=== PATIENT | male | born 1955 | race Caucasian/White ===

== ENCOUNTER → 2018-02-10 | Outpatient (CLI) | payer OTHER ==
[2018-02-10 12:54] LABS: BASOPHILS % (AUTO) 0.7 %; EOSINOPHILS # (AUTO) 0.1 10^3/uL (0.0-0.7); EOSINOPHILS % (AUTO) 3.1 %; HGB - HEMOGLOBIN 14.7 g/dL (14.0-18.0); LYMPHOCYTES # (AUTO) 1.3 10^3/uL (1.5-3.5); LYMPHOCYTES % (AUTO) 29.2 %; MEAN CORPUSCULAR HGB CONC 34.2 g/dL (32.0-36.0); MEAN CORPUSCULAR VOLUME 90.9 fL (80.0-94.0); MEAN PLATELET VOLUME 7.7 fL (7.4-11.4); MONOCYTES # (AUTO) 0.5 10^3/uL (0.0-1.0); NEUTROPHILS # (AUTO) 2.6 10^3/uL (1.5-6.6); PLT - PLATELET COUNT 333 10^3/uL (130-450); RED BLOOD COUNT 4.75 10^6/uL (4.70-6.10); RED CELL DISTRIBUTION WIDTH 13.4 % (12.0-15.0); WHITE BLOOD COUNT 4.6 x10^3/uL (4.8-10.8)
[2018-02-10 13:12] LABS: ALBUMIN 4.2 g/dL (3.2-5.5); ALBUMIN/GLOBULIN RATIO 1.4 (1.0-2.2); ALKALINE PHOSPHATASE 71 IU/L (42-121); ALT ALANINE AMINOTRANSFERASE 22 IU/L (10-60); AST ASPARTATE AMINOTRANSFERASE 22 IU/L (10-42); BILIRUBIN,TOTAL 0.8 mg/dL (0.2-1.0); BUN - BLOOD UREA NITROGEN 10 mg/dL (6-20); CARBON DIOXIDE - CO2 28 mmol/L (21-32); CHLORIDE 100 mmol/L (101-111); CHOL/HDL RATIO 3.8 (<5.0); CHOLESTEROL 199 mg/dL; CREATININE 0.9 mg/dL (0.6-1.2); GFR - MDRD 85 (>89); GLUCOSE 108 mg/dL (70-100); HDL CHOLESTEROL 53 mg/dL; LDL CHOLESTEROL,CALCULATED 123 mg/dL; LDL/HDL RATIO 2.3 (<3.6); SODIUM 137 mmol/L (135-145); TOTAL PROTEIN 7.1 g/dL (6.7-8.2); VLDL CHOLESTEROL 23 mg/dL
[2018-02-10 13:16] LABS: PSA FREE 0.39 ng/mL (0.16-2.81); PSA TOTAL 3.22 ng/mL (0.000-2.000)
[2018-02-10 14:02] LABS: HB2 TOTAL 15.5 g/dL; HEMOGLOBIN A1C 0.69 g/dL; HEMOGLOBIN A1C % 6.2 % (4.6-6.2)
== END ==
LOC: LAB.WCP 07:29
PROVIDERS: ATTEND Family Medicine
DX: Z00.00 Encounter for general adult medical examination without abnormal findings (principal); E78.5 Hyperlipidemia, unspecified; E74.39 Other disorders of intestinal carbohydrate absorption; Z12.5 Encounter for screening for malignant neoplasm of prostate
CPT/HCPCS: 36415; 80053; 80061; 83036; 83721; 84154; 85025

== ENCOUNTER 2018-07-07 08:00 | Outpatient (CLI) | payer OTHER ==
[2018-07-07 13:10] LABS: PSA FREE 0.25 ng/mL (0.16-2.81)
[2018-07-07 13:11] LABS: HB2 TOTAL 15.9 g/dL; HEMOGLOBIN A1C 0.71 g/dL; HEMOGLOBIN A1C % 6.2 % (4.6-6.2); PSA TOTAL 1.9 ng/mL (0.000-2.000)
== END 2018-07-07 23:59 | disposition home or self-care (01) ==
LOC: LAB.WCP 08:00
PROVIDERS: ATTEND Family Medicine
DX: R73.03 Prediabetes (principal); N40.0 Benign prostatic hyperplasia without lower urinary tract symptoms
CPT/HCPCS: 36415; 83036; 84153; 84154

== ENCOUNTER 2018-11-01 08:24 | Outpatient (CLI) | payer MEDICARE, OTHER | END 2018-11-01 23:59 | disposition home or self-care (01) | LOC: RT.N 08:24 | PROVIDERS: ATTEND Family Medicine | DX: R06.09 Other forms of dyspnea (principal) | CPT/HCPCS: 93005 ==

== ENCOUNTER 2018-11-01 09:23 | Outpatient (CLI) | payer MEDICARE, OTHER ==
[2018-11-01 10:07] LABS: TROPONIN I 0.18 ng/mL (<0.49)
[2018-11-01 10:09] LABS: CREATINE KINASE MB 3.5 ng/mL (0.6-6.3)
--- NOTE | 2018-11-01 15:14 | XRAY Report ---
Reason: DYSPNEA ON EXERTION Procedure Date: 11/01/2018 Accession Number: [id number] / [id number] Procedure: XR - Chest 2 View X-Ray CPT Code: 23534 FULL RESULT: EXAM: CHEST RADIOGRAPHY. EXAM DATE: 11/01/2018 09:41 AM. CLINICAL HISTORY: Shortness of air and inability to catch breath with simple exertion for 1 week. COMPARISON: None. TECHNIQUE: 2 views. FINDINGS: Lungs/Pleura: No focal opacities evident. No pleural effusion. No pneumothorax. Normal volumes. Mediastinum: Heart and mediastinal contours demonstrate borderline cardiomegaly. Other: None. IMPRESSION: Top normal size of the cardiac silhouette. [facility]
== END 2018-11-01 09:24 | disposition home or self-care (01) ==
LOC: DI 09:23
PROVIDERS: ATTEND Family Medicine
DX: R06.00 Dyspnea, unspecified (principal)
CPT/HCPCS: 36415; 71046; 82553; 83880; 84484; 85379

== ENCOUNTER 2018-11-23 08:49 | Outpatient (CLI) | payer MEDICARE, OTHER ==
--- NOTE | 2018-11-23 14:22 | Nuclear Medicine Report ---
Reason: DYSPNEA ON EXERTION Procedure Date: 11/23/2018 Accession Number: [id number] / [id number] Procedure: NM - Myocardial Perfusion STR/RST CPT Code: FULL RESULT: EXAM: SINGLE-ISOTOPE PHARMACOLOGICAL STRESS TEST WITH REGADENOSON. SINGLE-ISOTOPE AND TWO-DAY REST/STRESS MYOCARDIAL PERFUSION SCANS WITH TOMOGRAPHIC IMAGING, QUANTITATIVE ANALYSIS, WALL MOTION ANALYSIS AND CALCULATION OF EJECTION FRACTION. EXAM DATE: 11/23/2018 12:44 PM. CLINICAL HISTORY: DYSPNEA ON EXERTION. COMPARISON: None available. TECHNIQUE: A pharmacological stress was performed with the infusion of 0.4 mg regadenoson per protocol. According to protocol, 10.6 mCi of Tc-99m sestamibi was injected for stress myocardial perfusion scan. Motion correction was applied when appropriate. The following day after the intravenous administration of 43.8 mCi of Tc-99m sestamibi, a rest myocardial perfusion scan was done with tomography. Motion correction was applied when appropriate. Gated tomographic images were obtained for wall motion analysis and computation of left ventricular ejection fraction. FINDINGS: There is a large reversible perfusion defect involving the apex and mid to distal anteroseptal, anterior, and anterolateral saleem. Computer analysis. Summed stress score 25 Summed score 6 Summed difference score 18 Wall motion analysis demonstrates normal wall motion. The left ventricular end-diastolic volume is 66 cc. The left ventricular end-systolic volume is 15 cc. The left ventricular ejection fraction is calculated to be 78%. IMPRESSION: 1. On visual analysis, there is a large reversible perfusion defect involving the apex and mid to distal anteroseptal, anterior, and anterolateral saleem. 2. Left ventricular ejection fraction of 78%. 3. Normal segmental and global wall motion. 4. Normal left ventricular cavity size, no change with stress 5. Based on computer analysis, severely abnormal study with severe ischemia. Please correlate findings with stress ECG tracings and procedure notes. [facility] The call report notification system was initiated by Dr. Francesco Argueta at 02:20 PM on 11/23/2018. ADDENDUM: 11/23/18 14:56 The above call report findings were discussed with Dr Lozano by Dr. Francesco Argueta at 02:56 PM on 11/23/2018. ADDENDUM: 11/23/18 16:16 Correction, this was a single day treadmill exercise rest and stress exam. The patient exercised for 5 minutes 27 seconds. Peak heart rate 141 bpm which was 90% of maximum predicted heart rate.
--- NOTE | 2018-11-23 15:31 | CARDIAC PROCEDURE NOTE ---
DATE OF SERVICE: 11/23/2018 Physician: Bettie Bruno MD, [facility] INDICATIONS: Dyspnea on exertion. CARDIAC RISK FACTORS: Male gender, advanced age, remote ex-smoker who quit 33 years ago. PROCEDURE: After signing informed consent, patient underwent a Adarsh-protocol treadmill stress test with nuclear myocardial perfusion imaging. Resting heart rate: 73. Peak heart rate: 141 (90% predicted maximum heart rate for age). Resting blood pressure: 141/80. Peak blood pressure: 170/70. Patient exercised for 5 minutes and 27 seconds on a Adarsh-protocol treadmill stress test. Patient developed mild to moderate shortness of breath at the end of stage 1 and also described his abnormal "chest tightness." He declined calling this chest pressure or chest pain. He described this discomfort at 6/10. In recovery, it lasted 3 minutes, and stopped spontaneously. Oxygen saturation at peak was 99% on room air. He achieved 90% pred max HR and 6 METS. Resting EKG: Normal sinus rhythm, and within normal limits. EKG at peak: ST depressions of 1 mm, downsloping in leads 1, 2, aVL, but [address] depressions in V2 through V6. The recovery EKGs showed new T-wave inversions in leads V3 through V6, which persisted up to 6 minutes of recovery. IMPRESSION 1. Typical anginal symptoms developed with treadmill exercise. 2. Significant ST-segment depressions and T-wave inversions paralleled his dyspnea and chest pain, and are consistent with significant ischemia. 3. The patient was advised not to exercise daily (he reported what sounds like "walk through angina") until cleared to do so, also advised to start taking one baby aspirin a day. 4. Nuclear images reported separately. 5. Dr. Lozano was called with these results. cc: Raul Lozano MD TD: 11/23/2018 14:19 [facility]
== END 2018-11-23 08:50 | disposition home or self-care (01) ==
LOC: DI 08:49
PROVIDERS: ATTEND Family Medicine
DX: I25.9 Chronic ischemic heart disease, unspecified (principal); Z87.891 Personal history of nicotine dependence
CPT/HCPCS: 78452; 93016; 93017; 93018; A9500

== ENCOUNTER 2018-12-11 08:00 | Outpatient (CLI) | payer MEDICARE, OTHER ==
[2018-12-11 12:44] LABS: HGB - HEMOGLOBIN 14.6 g/dL (14.0-18.0); MEAN CORPUSCULAR HEMOGLOBIN 29.8 pg (27.0-31.0); MEAN CORPUSCULAR HGB CONC 32.3 g/dL (32.0-36.0); MEAN CORPUSCULAR VOLUME 92.2 fL (80.0-94.0); MEAN PLATELET VOLUME 9.6 fL (7.4-11.4); RED BLOOD COUNT 4.9 10^6/uL (4.70-6.10); RED CELL DISTRIBUTION WIDTH 12.7 % (12.0-15.0)
[2018-12-11 12:51] LABS: CALCIUM 9.2 mg/dL (8.5-10.3); CREATININE 1.1 mg/dL (0.6-1.2)
== END 2018-12-11 23:59 | disposition home or self-care (01) ==
LOC: LAB.WCP 08:00
PROVIDERS: ATTEND Internal Medicine Cardiovascular Disease
DX: I25.10 Atherosclerotic heart disease of native coronary artery without angina pectoris (principal); R94.39 Abnormal result of other cardiovascular function study; R07.89 Other chest pain
CPT/HCPCS: 36415; 80048; 85027

== ENCOUNTER 2019-09-03 07:10 | Outpatient (CLI) | payer MEDICARE, OTHER ==
[2019-09-03 14:33] LABS: CHOL/HDL RATIO 2.4 (<5.0); CHOLESTEROL 127 mg/dL; HDL CHOLESTEROL 54 mg/dL; LDL CHOLESTEROL,CALCULATED 57 mg/dL; LDL/HDL RATIO 1.1 (<3.6); VLDL CHOLESTEROL 16 mg/dL
== END 2019-09-03 23:59 | disposition home or self-care (01) ==
LOC: LAB.WCP 07:10
PROVIDERS: ATTEND Internal Medicine
DX: I25.10 Atherosclerotic heart disease of native coronary artery without angina pectoris (principal)
CPT/HCPCS: 36415; 80053; 80061; 81599; 83721

== ENCOUNTER 2020-03-27 08:00 | Outpatient (CLI) | payer MEDICARE, OTHER ==
--- NOTE | 2020-03-27 16:11 | XRAY Report ---
PROCEDURE: Chest 2 View X-Ray INDICATIONS: ATYPICAL CHEST PAIN TECHNIQUE: 2 view(s) of the chest. COMPARISON: Chest x-ray 11/01/2018 FINDINGS: Surgical changes and devices: Sternal wires are present. Lungs and pleura: No pleural effusions or pneumothorax. Lungs are clear. Mediastinum: Mediastinal contours are normal. Heart size is mildly enlarged. Bones and chest wall: No suspicious bony abnormalities. Soft tissues appear unremarkable. IMPRESSION: No acute pulmonary process. Reviewed by: Meliza Jimenez MD on 03/27/2020 4:10 PM PST Approved by: Meliza Jimenez MD on 03/27/2020 4:10 PM PST Station ID: [id number]
== END 2020-03-27 23:59 | disposition home or self-care (01) ==
LOC: DI.WCP 08:00
PROVIDERS: ATTEND Physician Assistant Medical
DX: R07.89 Other chest pain (principal)

== ENCOUNTER 2020-04-28 17:37 | Outpatient (CLI) | payer MEDICARE, OTHER | END 2020-04-28 17:38 | disposition home or self-care (01) | LOC: COV 17:37 | PROVIDERS: ATTEND Family Medicine | DX: R05 Cough (principal); R53.83 Other fatigue; R68.83 Chills (without fever); R09.81 Nasal congestion; J34.89 Other specified disorders of nose and nasal sinuses; Z20.822 Contact with and (suspected) exposure to COVID-19 ==

== ENCOUNTER 2020-05-19 09:35 | Outpatient (CLI) | payer MEDICARE, OTHER ==
[2020-05-19] MEDS ORDERED: IOVERSOL 320 100 ML VIAL IVP ONE ×2 (09:50→13:31)
--- NOTE | 2020-05-19 14:49 | CT Report ---
PROCEDURE: CHEST W INDICATIONS: ATYPICAL CHEST PAIN CONTRAST: IV CONTRAST: Optiray 320 ml: 100 PO CONTRAST: *NO PO CONTRAST TECHNIQUE: After the administration of intravenous contrast, 5 mm thick sections acquired from the pulmonary api leonel to the posterior costophrenic angles. 7 mm thick coronal MIP reformats were acquired. For radia tion dose reduction, the following was used: automated exposure control, adjustment of mA and/or kV according to patient size. COMPARISON: Chest x-ray 03/27/2020, 11/01/2018 FINDINGS: Image quality: Excellent. Lungs and pleura: No acute air space opacities. No pleural effusions or pneumothorax. Central and peripheral airways are patent and normal in caliber. Mediastinum: Heart size is normal. No pericardial effusion. There is a circumscribed thin-walled s ubcarinal air collection measuring 2.2 x 3.0 x 2.0 cm with uncertain origin. No debris or fluid layer . No mediastinal or hilar adenopathy by size criteria. Thoracic aorta and central pulmonary arteries are normal in size. Esophagus is normal in caliber. No hiatal hernia. Bones and chest wall: Healed median sternotomy changes are present. Sternal wires appear in place. P ost-CABG changes and heart are evident. No suspicious bony lesions. No vertebral body compression fr actures. No axillary or supraclavicular adenopathy by size criteria. Thyroid gland is within normal limits.. Abdomen: Visualized upper abdominal solid organs appear normal. Upper abdominal bowel loops are nor mal in caliber. IMPRESSION: 1. Expected surgical changes of prior median sternotomy. 2. Suspicious chest wall changes to explain pain. 3. 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 It can be seen in retrospect on prior chest x-rays. Reviewed by: Tiffanie Brothers MD on 05/19/2020 2:48 PM PST Approved by: Tiffanie Brothers MD on 05/19/2020 2:48 PM PST Station ID: [id number]
== END 2020-05-19 09:36 | disposition home or self-care (01) ==
LOC: DI 09:35
PROVIDERS: ATTEND Physician Assistant Medical
DX: R07.89 Other chest pain (principal); R93.7 Abnormal findings on diagnostic imaging of other parts of musculoskeletal system
CPT/HCPCS: 36415; 71260; 80048; Q9967

== ENCOUNTER 2020-05-19 09:38 | Outpatient (CLI) | payer MEDICARE, OTHER ==
[2020-05-19 10:18] LABS: CALCIUM 9.6 mg/dL (8.5-10.3)
== END 2020-05-19 09:39 | disposition home or self-care (01) ==
LOC: LAB 09:38
PROVIDERS: ATTEND Physician Assistant Medical
DX: R07.89 Other chest pain (principal)
CPT/HCPCS: 36415; 80048

== ENCOUNTER 2020-10-22 08:00 | Outpatient (CLI) | payer MEDICARE, OTHER ==
[2020-10-22 12:16] LABS: BASOPHILS % (AUTO) 0.8 %; EOSINOPHILS # (AUTO) 0.2 10^3/uL (0.0-0.7); EOSINOPHILS % (AUTO) 4.4 %; HCT - HEMATOCRIT 44.1 % (42.0-52.0); HGB - HEMOGLOBIN 14.6 g/dL (14.0-18.0); LYMPHOCYTES # (AUTO) 1.5 10^3/uL (1.5-3.5); LYMPHOCYTES % (AUTO) 27.9 %; MEAN CORPUSCULAR HEMOGLOBIN 31.1 pg (27.0-31.0); MEAN CORPUSCULAR HGB CONC 33.1 g/dL (32.0-36.0); MONOCYTES # (AUTO) 0.5 10^3/uL (0.0-1.0); MONOCYTES % (AUTO) 10.1 %; NEUTROPHILS % (AUTO) 56.6 %; PLT - PLATELET COUNT 336 10^3/uL (130-450); RED BLOOD COUNT 4.69 10^6/uL (4.70-6.10); RED CELL DISTRIBUTION WIDTH 12.5 % (12.0-15.0); WHITE BLOOD COUNT 5.3 x10^3/uL (4.8-10.8)
[2020-10-22 12:48] LABS: ALBUMIN 4.4 g/dL (3.2-5.5); ALBUMIN/GLOBULIN RATIO 1.5 (1.0-2.2); ALKALINE PHOSPHATASE 63 IU/L (42-121); ALT ALANINE AMINOTRANSFERASE 18 IU/L (10-60); AST ASPARTATE AMINOTRANSFERASE 21 IU/L (10-42); BILIRUBIN,TOTAL 0.8 mg/dL (0.2-1.0); BUN - BLOOD UREA NITROGEN 17 mg/dL (6-20); CALCIUM 9.4 mg/dL (8.5-10.3); CARBON DIOXIDE - CO2 31 mmol/L (21-32); CHLORIDE 101 mmol/L (101-111); CHOL/HDL RATIO 2.7 (<5.0); CHOLESTEROL 129 mg/dL; GFR - MDRD 75 (>89); GLUCOSE 109 mg/dL (70-100); HDL CHOLESTEROL 47 mg/dL; LDL CHOLESTEROL,CALCULATED 66 mg/dL; LDL/HDL RATIO 1.4 (<3.6); POTASSIUM 4.5 mmol/L (3.5-5.0); SODIUM 141 mmol/L (135-145); TOTAL PROTEIN 7.3 g/dL (6.7-8.2); TRIGLYCERIDES 81 mg/dL; VLDL CHOLESTEROL 16 mg/dL
== END 2020-10-22 23:59 | disposition home or self-care (01) ==
LOC: LAB.WCP 08:00
PROVIDERS: ATTEND Physician Assistant Medical
DX: E78.5 Hyperlipidemia, unspecified (principal); N40.0 Benign prostatic hyperplasia without lower urinary tract symptoms; R03.0 Elevated blood-pressure reading, without diagnosis of hypertension
CPT/HCPCS: 36415; 80053; 80061; 83721; 84153; 85025

== ENCOUNTER 2021-02-20 09:48 | Day surgery (SDC) | payer MEDICARE, OTHER ==
[2021-02-20] MEDS ORDERED: LACTATED RINGERS 1,000 ML IV ONE ×2 (10:12→13:30)
--- NOTE | 2021-02-20 10:31 | ANESTHESIA ---
Pre-Anesthesia VS, & Labs - Diagnosis Screening exam - Procedure Colonoscopy Vital Signs: Temp Pulse Resp BP Pulse Ox 36.4 C L 63 14 161/92 H 99 02/20/21 10:08 02/20/21 10:08 02/20/21 10:08 02/20/21 10:08 02/20/21 10:08 Height: 5 ft 8 in Weight (kg): 81 kg Body Mass Index: 27.1 BMI Classification: Overweight - NPO >8 hours Last Fluid Intake: 0700 Home Medications and Allergies Home Medications: Ambulatory Orders Aspirin [Vazalore] 81 mg PO DAILY 02/19/21 Atorvastatin [Lipitor] 40 mg PO DAILY 02/19/21 Metoprolol Succinate [[place]apsp[place] Sprinkle] 12.5 mg PO DAILY 02/19/21 Omeprazole 20 mg PO DAILY 02/19/21 Aspirin [Vazalore] 81 mg PO DAILY 02/19/21 Atorvastatin [Lipitor] 40 mg PO DAILY 02/19/21 Metoprolol Succinate [[place] Sprinkle] 12.5 mg PO DAILY 02/19/21 Omeprazole 20 mg PO DAILY 02/19/21 Allergies/Adverse Reactions: Allergies Allergy/AdvReac Type Severity Reaction Status Date / Time Penicillins Allergy Rash Verified 02/19/21 12:47 Anes History & Medical History - Anesthetic History Anesthesia Complications: reports: No previous complications - Medical History Cardiovascular: reports: High cholesterol, Coronary artery disease (s/p CABG) Pulmonary: reports: None Gastrointestinal: reports: GERD (controlled with medication) Urinary: reports: None Neuro: reports: None Musculoskeletal: reports: None Endocrine/Autoimmune: reports: None Blood Disorders: reports: None Skin: reports: None, Other Smoking Status: Never smoker Psychosocial: reports: Alcohol (2 glasses of wine per day) History of Cancer?: No - Surgical History Eyes Ears Nose Throat (EENT): reports: Tonsil/Adenoidectomy Cardiothoracic: reports: CABG (Dec 2018) Exam General: Alert, Oriented x3, Cooperative, No acute distress Dental: WNL Mouth Openin Fingerbreadth Neck Mobility: Normal Mallampati classification: II Thyromental Distance: 4-6 cm Respiratory: Lungs clear, Normal breath sounds, No respiratory distress, No accessory muscle use Cardiovascular: Regular rate, Normal S1, Normal S2, No murmurs Mental/Cognitive Status: Alert/Oriented X3, Normal for patient Plan Anesthesia Type: Total IV Consent for Procedure(s) Verified and Reviewed: Yes Code Status: Attempt Resuscitation ASA classification: 3-Severe systemic disease Is this case an emergency?: No
[2021-02-20] MEDS ORDERED: MIDAZOLAM 2 MG/2 ML VIAL ONE (11:30)
[2021-02-20] MEDS ORDERED: fentaNYL 100 MCG/2 ML VIAL ONE (11:30)
[2021-02-20] MEDS ORDERED: PROPOFOL 200 MG/20 ML VIAL IVP ONE (11:31)
[2021-02-20] MEDS ORDERED: PROPOFOL 500 MG/50 ML 500 MG/50 ML VIAL ONE (11:45)
--- NOTE | 2021-02-20 12:14 | HISTORY & PHYSICAL EXAMINATION ---
Chief Complaint - Chief Complaint Chief Complaint: here for colon cancer screening History of Present Illness - History Obtained From Records Reviewed: yes History obtained from: pt Exam Limitations: none - History of Present Illness HPI Comment/Other: colon cancer screening History - Past Medical History Cardiovascular: reports: High cholesterol, Coronary artery disease (s/p CABG) Respiratory: reports: None Neuro: reports: None Endocrine/Autoimmune: reports: None GI: reports: GERD (controlled with medication) : reports: None HEENT: reports: None Psych: reports: None Musculoskeletal: reports: None Derm: reports: None, Other MRSA Hx?: No - Past Surgical History Cardiovascular: reports: CABG (Dec 2018) HEENT: reports: Tonsil/Adenoidectomy Meds/Allgy - Home Medications Home Medications: Ambulatory Orders Medication Instructions Recorded Confirmed Aspirin [Vazalore] 81 mg PO DAILY 02/19/21 02/20/21 Atorvastatin [Lipitor] 40 mg PO DAILY 02/19/21 02/19/21 Metoprolol Succinate [Kapspargo 12.5 mg PO DAILY 02/19/21 02/20/21 Sprinkle] Omeprazole 20 mg PO DAILY 02/19/21 02/19/21 - Allergies Allergies/Adverse Reactions: Allergies Allergy/AdvReac Type Severity Reaction Status Date / Time Penicillins Allergy Rash Verified 02/19/21 12:47 Review of Systems - Other Findings Other Findings: 10 pt ros as above otherwise unremarkable Exam - Vital Signs Reviewed Vital Signs: Yes Vital Signs: Vital Signs x48h Temp Pulse Resp BP Pulse Ox 02/20/21 10:08 36.4 C L 63 14 161/92 H 99 - Physical Exam General Appearance: positive: No acute distress, Alert Eyes Bilateral: positive: PERRL, EOMI ENT: positive: No signs of dehydration Neck: positive: No JVD Respiratory: positive: No respiratory distress, Breath sounds nml Cardiovascular: positive: Regular rate & rhythm Abdomen: positive: Non-tender, No distention Neurologic/Psychiatric: positive: Oriented x3 Conclusion/Plan - Problem List (1) Colon cancer screening Conclusion/Plan: plan colonoscopy. parq held and consent obtained
[2021-02-20 13:54] VITALS: BP 102/87
--- NOTE | 2021-02-20 15:57 | ANESTHESIA POST OP EVALUATION ---
Anesthesia Post Eval - Post Anesthesia Eval Vitals: Last Vital Signs Temp 36.5 C 02/20/21 13:53 Pulse 73 02/20/21 13:53 Resp 15 02/20/21 13:53 BP 102/87 H 02/20/21 13:53 Pulse Ox 96 02/20/21 13:53 CV Function Including HR & BP: Stable Pain Control: Satisfactory Nausea & Vomiting: Negative Mental Status: Baseline Respiratory Status: Airway Patent Hydration Status: Satisfactory Anesthesia Complications: None
== END 2021-02-20 09:49 | disposition home or self-care (01) ==
LOC: SDS 09:48
PROVIDERS: ATTEND Surgery
PROC: 0DBL8ZZ Excision of Transverse Colon, Via Natural or Artificial Opening Endoscopic (ICD-10-PCS; 2021-02-20)
PROC: 0DBP8ZZ Excision of Rectum, Via Natural or Artificial Opening Endoscopic (ICD-10-PCS; principal; 2021-02-20 11:45)
DX: Z12.11 Encounter for screening for malignant neoplasm of colon (principal); D12.3 Benign neoplasm of transverse colon; K62.1 Rectal polyp; I25.10 Atherosclerotic heart disease of native coronary artery without angina pectoris; Z95.1 Presence of aortocoronary bypass graft
CPT/HCPCS: 45380; J7120

== ENCOUNTER 2021-12-30 07:23 | Outpatient (CLI) | payer MEDICARE, OTHER ==
[2021-12-30 12:02] LABS: BASOPHILS # (AUTO) 0.1 10^3/uL (0.0-0.1); BASOPHILS % (AUTO) 0.8 %; EOSINOPHILS # (AUTO) 0.2 10^3/uL (0.0-0.7); EOSINOPHILS % (AUTO) 3.4 %; HCT - HEMATOCRIT 43.6 % (42.0-52.0); HGB - HEMOGLOBIN 14.5 g/dL (14.0-18.0); LYMPHOCYTES # (AUTO) 1.5 10^3/uL (1.5-3.5); LYMPHOCYTES % (AUTO) 24.8 %; MEAN CORPUSCULAR HEMOGLOBIN 30.9 pg (27.0-31.0); MEAN CORPUSCULAR HGB CONC 33.3 g/dL (32.0-36.0); MEAN CORPUSCULAR VOLUME 92.8 fL (80.0-94.0); MEAN PLATELET VOLUME 9.8 fL (7.4-11.4); MONOCYTES # (AUTO) 0.5 10^3/uL (0.0-1.0); MONOCYTES % (AUTO) 8.8 %; NEUTROPHILS # (AUTO) 3.6 10^3/uL (1.5-6.6); NEUTROPHILS % (AUTO) 61.9 %; PLT - PLATELET COUNT 403 10^3/uL (130-450); RED CELL DISTRIBUTION WIDTH 12.5 % (12.0-15.0); WHITE BLOOD COUNT 5.9 x10^3/uL (4.8-10.8)
[2021-12-30 12:34] LABS: ALBUMIN 4.4 g/dL (3.2-5.5); ALBUMIN/GLOBULIN RATIO 1.4 (1.0-2.2); ALKALINE PHOSPHATASE 70 IU/L (42-121); ALT ALANINE AMINOTRANSFERASE 21 IU/L (10-60); AST ASPARTATE AMINOTRANSFERASE 22 IU/L (10-42); BILIRUBIN,TOTAL 0.7 mg/dL (0.2-1.0); BUN - BLOOD UREA NITROGEN 18 mg/dL (6-20); CALCIUM 9.3 mg/dL (8.5-10.3); CARBON DIOXIDE - CO2 30 mmol/L (21-32); CHLORIDE 101 mmol/L (101-111); CHOL/HDL RATIO 2.9 (<5.0); CHOLESTEROL 134 mg/dL; GFR - MDRD 74 (>89); GLUCOSE 105 mg/dL (70-100); HDL CHOLESTEROL 46 mg/dL; LDL CHOLESTEROL,CALCULATED 73 mg/dL; LDL/HDL RATIO 1.6 (<3.6); POTASSIUM 4.6 mmol/L (3.5-5.0); SODIUM 138 mmol/L (135-145); TOTAL PROTEIN 7.5 g/dL (6.7-8.2); TRIGLYCERIDES 73 mg/dL; VLDL CHOLESTEROL 15 mg/dL
[2021-12-30 13:01] LABS: ESTIMATED AVERAGE GLUCOSE 137 mg/dL (70-100); HEMOGLOBIN A1c% 6.4 % (4.27-6.07)
== END 2021-12-30 07:24 | disposition home or self-care (01) ==
LOC: LAB.N 07:23
PROVIDERS: ATTEND Physician Assistant Medical
DX: I25.10 Atherosclerotic heart disease of native coronary artery without angina pectoris (principal); E78.5 Hyperlipidemia, unspecified; R73.03 Prediabetes; Z12.5 Encounter for screening for malignant neoplasm of prostate; I10 Essential (primary) hypertension
CPT/HCPCS: 36415; 80053; 80061; 83036; 85025; G0103; 83721; 84153

== ENCOUNTER 2023-01-06 07:30 | Outpatient (CLI) | payer MEDICARE, OTHER ==
[2023-01-06 12:24] LABS: BASOPHILS # (AUTO) 0.1 10^3/uL (0.0-0.1); EOSINOPHILS # (AUTO) 0.3 10^3/uL (0.0-0.7); HCT - HEMATOCRIT 44.4 % (42.0-52.0); HGB - HEMOGLOBIN 14.2 g/dL (14.0-18.0); LYMPHOCYTES # (AUTO) 1.6 10^3/uL (1.5-3.5); LYMPHOCYTES % (AUTO) 25.8 %; MEAN CORPUSCULAR HEMOGLOBIN 29.7 pg (27.0-31.0); MEAN CORPUSCULAR VOLUME 92.9 fL (80.0-94.0); MEAN PLATELET VOLUME 10.1 fL (7.4-11.4); MONOCYTES # (AUTO) 0.6 10^3/uL (0.0-1.0); MONOCYTES % (AUTO) 9.3 %; NEUTROPHILS # (AUTO) 3.7 10^3/uL (1.5-6.6); NEUTROPHILS % (AUTO) 58.7 %; PLT - PLATELET COUNT 362 10^3/uL (130-450); RED BLOOD COUNT 4.78 10^6/uL (4.70-6.10); RED CELL DISTRIBUTION WIDTH 13.7 % (12.0-15.0); WHITE BLOOD COUNT 6.2 x10^3/uL (4.8-10.8)
[2023-01-06 12:39] LABS: SLIDE REVIEW? Indicated
[2023-01-06 12:40] LABS: PLATELET ESTIMATE, MANUAL NORMAL (130-450,000) (NORMAL); PLATELET MORPHOLOGY 1+ LARGE PLATELETS (NORMAL); RBC MORPHOLOGY (MULTIPLE) NORMAL APPEARANCE (NORMAL)
[2023-01-06 12:52] LABS: ESTIMATED AVERAGE GLUCOSE 131 mg/dL (70-100); HEMOGLOBIN A1c% 6.2 % (4.27-6.07)
[2023-01-06 12:54] LABS: ALBUMIN 4.4 g/dL (3.2-5.5); ALBUMIN/GLOBULIN RATIO 1.6 (1.0-2.2); ALKALINE PHOSPHATASE 77 IU/L (42-121); ALT ALANINE AMINOTRANSFERASE 17 IU/L (10-60); AST ASPARTATE AMINOTRANSFERASE 19 IU/L (10-42); BILIRUBIN,TOTAL 0.5 mg/dL (0.2-1.0); BUN - BLOOD UREA NITROGEN 14 mg/dL (6-20); CALCIUM 9.7 mg/dL (8.5-10.3); CARBON DIOXIDE - CO2 31 mmol/L (21-32); CHLORIDE 103 mmol/L (101-111); CHOL/HDL RATIO 2.3 (<5.0); CHOLESTEROL 111 mg/dL; CREATININE 0.9 mg/dL (0.6-1.3); GFR - MDRD 84 (>89); GLUCOSE 110 mg/dL (74-104); HDL CHOLESTEROL 49 mg/dL; LDL CHOLESTEROL,CALCULATED 45 mg/dL; LDL/HDL RATIO 0.9 (<3.6); POTASSIUM 4.3 mmol/L (3.5-4.5); SODIUM 139 mmol/L (135-145); TOTAL PROTEIN 7.2 g/dL (6.4-8.9); TRIGLYCERIDES 87 mg/dL (48-352); VLDL CHOLESTEROL 17 mg/dL
== END 2023-01-06 07:31 | disposition home or self-care (01) ==
LOC: LAB.N 07:30
PROVIDERS: ATTEND Physician Assistant Medical
DX: I10 Essential (primary) hypertension (principal); E78.5 Hyperlipidemia, unspecified; N40.0 Benign prostatic hyperplasia without lower urinary tract symptoms; R73.03 Prediabetes
CPT/HCPCS: 36415; 80053; 80061; 83036; 83721; 84153; 85025

== ENCOUNTER 2023-05-16 12:00 | Outpatient (CLI) | payer MEDICARE, OTHER | END 2023-05-16 12:15 | disposition home or self-care (01) | LOC: LAB.N 12:00 | PROVIDERS: ATTEND Physician Assistant Medical | DX: L02.01 Cutaneous abscess of face (principal) | CPT/HCPCS: 87070; 87205 ==